=== PATIENT | female | born 1960 | race Caucasian/White ===

== ENCOUNTER 2017-12-19 15:09 | Emergency (ER) | payer OTHER | END 2017-12-19 17:28 | disposition home or self-care (01) | LOC: M ED 15:09 | DX: J95.01 Hemorrhage from tracheostomy stoma (principal); Z87.09 Personal history of other diseases of the respiratory system; Z79.899 Other long term (current) drug therapy | CPT/HCPCS: 99283 ==

== ENCOUNTER → 2018-12-14 | Outpatient (CLI) | payer OTHER ==
[~2018-12-14] MED LIST: /IPRA3SP; /MOXI40TA; /PANT40TA; ATROVENT; PERIDEX; POLYSPORIN; PRAV40TA2 PO; PRED50TA; PRED5TAB; PREDNISONE; PROTPAK PO; PULM0.25 INH; VICO5TAB; XOPE1.252; ZOCO40TA
--- NOTE | 2018-12-15 06:50 | REP ---
Clinical: Lung screening. History smoking. Comparison: None Technique: Axial low-dose noncontrast images from the thoracic inlet to the upper abdomen using lung screening technique. Findings: The lung simms are well-aerated. Mild biapical scarring and subtle chronic-appearing changes along the medial right middle lobe and lingula are identified. A 4 mm calcified granuloma in the medial left lower lobe (image 75) is identified. No consolidation, significant nodule or mass lesion is appreciated. No pleural effusion/reaction or pneumothorax. Tracheobronchial tree is patent. Mediastinum demonstrates mild atherosclerotic changes of the coronary arteries without cardiomegaly. Impression: Lung-RADS category I. Chronic-appearing changes. No nodule or suspicious abnormality. Management recommendations include annual low-dose CT evaluation. Electronically Signed by Shaheed Boone MD 12/15/2018 06:41 A
== END ==
LOC: M RAD 12:13
PROVIDERS: ATTEND Internal Medicine Pulmonary Disease
DX: Z12.2 Encounter for screening for malignant neoplasm of respiratory organs (principal); Z87.891 Personal history of nicotine dependence; I25.10 Atherosclerotic heart disease of native coronary artery without angina pectoris

== ENCOUNTER → 2020-01-09 | Outpatient (CLI) | payer OTHER ==
[~2020-01-09] MED LIST changes: -/IPRA3SP; -/MOXI40TA; -/PANT40TA; +ATRO1SOL13; +AVEL1TAB2; +PROT1TAB2
--- NOTE | 2020-01-09 15:15 | REP ---
REASON FOR EXAM: Tobacco abuse. Comparison exam is 12/14/[address] As per the protocol, only lung window images were sent to the read station for interpretation. Once again, there is biapical pleuroparenchymal scarring. This is stable. There are no new abnormal nodules, masses, or opacities. There is a tracheostomy tube in place. Grossly, the mediastinum and pulmonary raúl are unchanged. Grossly, the imaged upper abdomen and imaged osseous structures are unchanged. IMPRESSION: No significant change from the prior exam. Lung RADS category 1 exam. Electronically Signed by Neo Alarcon DO 01/09/2020 03:30 P
== END ==
LOC: M RAD 14:04
PROVIDERS: ATTEND Internal Medicine Pulmonary Disease
DX: J44.9 Chronic obstructive pulmonary disease, unspecified (principal)

== ENCOUNTER → 2021-01-09 | Outpatient (CLI) | payer OTHER ==
--- NOTE | 2021-01-10 09:46 | REP ---
INDICATION: NICOTINE DEPEND COMPARISON: 01/09/2020, 12/14/2018 TECHNIQUE: Axial noncontrast images from the thoracic inlet to the upper abdomen using low-dose lung screening technique (LDCT). FINDINGS: Lung simms demonstrate stable chronic changes including minimal biapical scarring as well as chronic changes along the medial right middle lobe and calcified granuloma in the left lower lobe. No acute consolidation, significant nodule, or mass lesion. No pleural effusion. No pneumothorax. Tracheostomy in satisfactory position. Tracheobronchial tree is patent. Mediastinum demonstrates atherosclerotic changes to the thoracic aorta and coronary arteries without aortic aneurysm or cardiomegaly. IMPRESSION: Lung-RADS category 1. Chronic stable changes. Management recommendations include annual low-dose CT surveillance. <Electronically signed by Shaheed Boone > 01/10/21 [id number]
== END ==
LOC: M RAD 14:56
PROVIDERS: ATTEND Internal Medicine Pulmonary Disease
DX: Z12.2 Encounter for screening for malignant neoplasm of respiratory organs (principal); Z87.891 Personal history of nicotine dependence

== ENCOUNTER → 2022-01-15 | Outpatient (CLI) | payer OTHER | LOC: M RAD 10:05 | PROVIDERS: ATTEND Internal Medicine Pulmonary Disease | DX: Z87.891 Personal history of nicotine dependence (principal) ==

== ENCOUNTER → 2023-03-17 | Outpatient (CLI) | payer MEDICARE | LOC: M RAD 08:32 | PROVIDERS: ATTEND Nurse Practitioner Adult Health | DX: Z87.891 Personal history of nicotine dependence (principal) ==

== ENCOUNTER → 2023-06-27 | Outpatient (CLI) | payer MEDICARE | LOC: M RAD 15:51 | PROVIDERS: ATTEND Student in an Organized Health Care Education/Training Program | DX: M25.532 Pain in left wrist (principal) ==

== ENCOUNTER → 2024-05-11 | Outpatient (CLI) | payer MEDICARE | LOC: M RAD 16:23 | PROVIDERS: ATTEND Internal Medicine Pulmonary Disease | DX: Z87.891 Personal history of nicotine dependence (principal) ==

== ENCOUNTER → 2025-05-17 | Outpatient (CLI) | payer MEDICARE ==
[~2025-05-17] MED LIST changes: -PRAV40TA2 PO; +PRAV40TA85 PO
== END ==
LOC: M RAD 10:14
PROVIDERS: ATTEND Internal Medicine Pulmonary Disease
DX: J44.9 Chronic obstructive pulmonary disease, unspecified (principal)

== ENCOUNTER → 2025-05-31 | Outpatient (CLI) | payer MEDICARE | LOC: M CARPUL 14:07 | PROVIDERS: ATTEND Internal Medicine Pulmonary Disease | DX: J44.9 Chronic obstructive pulmonary disease, unspecified (principal); I08.1 Rheumatic disorders of both mitral and tricuspid valves ==